=== PATIENT | female | born 1975 | race Caucasian/White ===

== ENCOUNTER → 2016-10-22 | Outpatient (CLI) | payer OTHER ==
[~2016-10-22] MED LIST: AUGMENTIN XR 101 TER PO; BIAXIN500 MG PO; CLARITIN10 MG PO; DIFLUCAN150 MG PO; NKHM; PROTONIX40 MG PO; VICODIN 5/500 505 MG PO; ZITHROMAX Z PA250 MG PO; ZITHROMAX250 MG PO
[2016-10-22 12:06] LABS: ALBUMIN 3.7 gm/dl (3.1-4.5); ALKALINE PHOSPHATASE 67 U/L (45-117); BILIRUBIN, TOTAL 0.4 mg/dl (0.2-1.0); BUN 21 mg/dl (7-24); CARBON DIOXIDE 20 mmol/L (21-32); CHLORIDE 114 mmol/L (98-107); EST GLOM FILT AFRICAN AMERICAN > 60 ml/min; GLUCOSE 98 mg/dL (65-99); POTASSIUM 4.1 mmol/L (3.5-5.1); SGOT/AST 24 IU/L (3-35); SGPT/ALT 41 U/L (12-78); SODIUM 146 mmol/L (136-145); TOTAL PROTEIN 7.4 gm/dL (6.4-8.2)
[2016-10-22 12:10] LABS: FOLIC ACID 11.66 ng/mL (>5.38)
== END | disposition home or self-care (01) ==
LOC: LAB 11:06
PROVIDERS: Internal Medicine
DX: R20.2 Paresthesia of skin (principal)

== ENCOUNTER → 2017-05-11 | Outpatient (CLI) | payer OTHER ==
[2017-05-11 07:58] LABS: BASO # 0.1 10*3/uL (0.0-0.1); BASO % 0.8 % (0.0-1.0); EOS # 0.1 10*3/uL (0.0-0.4); EOS % 0.8 % (1.0-4.0); HEMOGLOBIN 13.8 g/dl (12.0-16.0); IG # 0.1 10*3/uL (0.0-0.1); LYMPH # 3.4 10*3/uL (1.3-4.4); LYMPH % 25.7 % (27.0-41.0); MEAN CELL VOLUME 86.9 fl (81.0-99.0); MEAN CORPUSCULAR HGB 27.9 pg (27.0-31.0); MEAN CORPUSCULAR HGB CONC 32.1 g/dl (33.0-37.0); MEAN PLATELET VOLUME 10.3 fl (9.6-12.3); MONO % 7.3 % (3.0-9.0); NEUT # 8.5 10*3/uL (2.3-7.9); NEUT % 64.7 % (47.0-73.0); PLATELET COUNT AUTOMATED 416 10*3/uL (130-400); RED BLOOD COUNT 4.95 10*6/uL (4.10-5.10); RED CELL DISTRI WIDTH 13.9 % (0-14.5); WHITE BLOOD COUNT 13.1 10*3/uL (4.8-10.8)
[2017-05-11 08:19] LABS: ALBUMIN 3.2 gm/dl (3.1-4.5); ALKALINE PHOSPHATASE 68 U/L (45-117); BILIRUBIN, TOTAL 0.3 mg/dl (0.2-1.0); BUN 17 mg/dl (7-24); CARBON DIOXIDE 26 mmol/L (21-32); CHLORIDE 108 mmol/L (98-107); EST GLOM FILT AFRICAN AMERICAN > 60 ml/min; GLUCOSE 86 mg/dL (65-99); SGOT/AST 15 IU/L (3-35); SGPT/ALT 20 U/L (12-78); SODIUM 140 mmol/L (136-145); TOTAL PROTEIN 7.1 gm/dL (6.4-8.2)
[2017-05-11 08:40] LABS: VITAMIN D, 25-HYDROXY 26.3 ng/mL (30-100)
[2017-05-11 08:41] LABS: FOLIC ACID 10.94 ng/mL (>5.38)
== END | disposition home or self-care (01) ==
LOC: LAB 07:36 → CT 08:00
PROVIDERS: Surgery
DX: H71.92 Unspecified cholesteatoma, left ear (principal); H91.92 Unspecified hearing loss, left ear; K90.89 Other intestinal malabsorption; E55.9 Vitamin D deficiency, unspecified; H65.195 Other acute nonsuppurative otitis media, recurrent, left ear; Z98.84 Bariatric surgery status

== ENCOUNTER 2021-05-17 10:19 | Emergency (ER) | payer OTHER ==
[~2021-05-17 10:19] MED LIST changes: -MONTELUKAST SOD10 MG PO
[2021-05-17 10:34] VITALS: BP 90/44
[2021-05-17 11:01] LABS: BASO % 0.2 % (0.0-1.0); HEMATOCRIT 34.4 % (37.0-47.0); LYMPH # 0.7 10*3/uL (1.3-4.4); LYMPH % 13.5 % (27.0-41.0); MEAN CELL VOLUME 70.3 fl (81.0-99.0); MEAN CORPUSCULAR HGB 19.8 pg (27.0-31.0); MEAN CORPUSCULAR HGB CONC 28.2 g/dl (33.0-37.0); MEAN PLATELET VOLUME 9.7 fl (9.6-12.3); MONO # 0.3 10*3/uL (0.1-1.0); MONO % 4.8 % (3.0-9.0); NEUT # 4.3 10*3/uL (2.3-7.9); NEUT % 81.1 % (47.0-73.0); PLATELET COUNT AUTOMATED 240 10*3/uL (130-400); RED BLOOD COUNT 4.89 10*6/uL (4.10-5.10); RED CELL DISTRI WIDTH 19.9 % (0-14.5); WHITE BLOOD COUNT 5.3 10*3/uL (4.8-10.8)
[2021-05-17 11:18] LABS: ALBUMIN 2.7 gm/dl (3.1-4.5); ALKALINE PHOSPHATASE 53 U/L (45-117); BUN 8 mg/dl (7-24); CHLORIDE 113 mmol/L (98-107); CREATININE 0.71 mg/dL (0.55-1.02); POTASSIUM 3.4 mmol/L (3.5-5.1); SGOT/AST 40 IU/L (3-35); SGPT/ALT 24 U/L (12-78); SODIUM 142 mmol/L (136-145); TOTAL PROTEIN 6.6 gm/dL (6.4-8.2)
[2021-05-17 11:25] LABS: TROPONIN I < 0.015 ng/ml (<0.045)
== END 2021-05-17 10:40 | disposition home or self-care (01) ==
LOC: ED 10:19
PROVIDERS: Student in an Organized Health Care Education/Training Program
DX: R55 Syncope and collapse (principal); Z79.899 Other long term (current) drug therapy

== ENCOUNTER → 2021-05-17 | Outpatient (CLI) | payer OTHER ==
[~2021-05-17] MED LIST changes: +MONTELUKAST SOD10 MG PO
== END | disposition home or self-care (01) ==
LOC: RAD 10:04
PROVIDERS: ATTEND Family Medicine
DX: J98.11 Atelectasis (principal); R91.8 Other nonspecific abnormal finding of lung field

== ENCOUNTER 2021-05-19 13:12 | Inpatient (IN) | payer OTHER ==
[~2021-05-19] VITALS: Ht 165.1 cm; Wt 113.0 kg
[2021-05-19 13:21] VITALS: BP 99/40
[2021-05-19 14:07] LABS: BASO % 0.2 % (0.0-1.0); HEMATOCRIT 34.1 % (37.0-47.0); LYMPH # 0.5 10*3/uL (1.3-4.4); LYMPH % 8.6 % (27.0-41.0); MEAN CELL VOLUME 71.8 fl (81.0-99.0); MEAN CORPUSCULAR HGB 19.8 pg (27.0-31.0); MEAN CORPUSCULAR HGB CONC 27.6 g/dl (33.0-37.0); MEAN PLATELET VOLUME 10.4 fl (9.6-12.3); MONO # 0.3 10*3/uL (0.1-1.0); MONO % 5.7 % (3.0-9.0); NEUT # 4.4 10*3/uL (2.3-7.9); NEUT % 84.7 % (47.0-73.0); PLATELET COUNT AUTOMATED 273 10*3/uL (130-400); RED BLOOD COUNT 4.75 10*6/uL (4.10-5.10); RED CELL DISTRI WIDTH 20.2 % (0-14.5); WHITE BLOOD COUNT 5.2 10*3/uL (4.8-10.8)
[2021-05-19 14:09] LABS: ABG BASE EXCESS -4.4 mmol/L (-2.0-2.0); ARTERIAL BLOOD GAS PH 7.446 (7.35-7.45); ARTERIAL BLOOD GAS PO2 62.2 (80-90)
[2021-05-19 14:21] VITALS: BP 108/67
[2021-05-19 14:30] LABS: ALBUMIN 2.5 gm/dl (3.1-4.5); ALKALINE PHOSPHATASE 52 U/L (45-117); BUN 11 mg/dl (7-24); CHLORIDE 115 mmol/L (98-107); CPK 89 U/L (26-192); LDH 439 U/L (84-246); POTASSIUM 3.2 mmol/L (3.5-5.1); SGOT/AST 55 IU/L (3-35); SGPT/ALT 26 U/L (12-78); SODIUM 143 mmol/L (136-145); TOTAL PROTEIN 6.6 gm/dL (6.4-8.2); TROPONIN I < 0.015 ng/ml (<0.045)
[2021-05-19 16:38] VITALS: BP 131/76
[2021-05-19 18:40] VITALS: BP 112/48
[2021-05-19 19:15] LABS: BILIRUBIN Negative (Negative); BLOOD Negative (Negative); CLARITY Cloudy (Clear); COLOR Dark Yellow (Yellow); GLUCOSE Negative (Negative); KETONE 1+ (Negative); LEUKO ESTERASE Negative (Negative); NITRITE Negative (Negative); SPECIFIC GRAVITY 1.025 (1.001-1.030)
[2021-05-19 19:23] LABS: BACTERIA 2+; EPITHELIAL CELLS TNTC; MUCOUS TRACE; RBC 0-2 rbc/hpf (0-2)
[2021-05-19 19:53] VITALS: BP 104/57
[2021-05-19 23:48] LABS: HEMATOCRIT 33.5 % (37.0-47.0); LYMPH # 0.4 10*3/uL (1.3-4.4); LYMPH % 8.1 % (27.0-41.0); MEAN CELL VOLUME 71.1 fl (81.0-99.0); MEAN CORPUSCULAR HGB 19.7 pg (27.0-31.0); MEAN CORPUSCULAR HGB CONC 27.8 g/dl (33.0-37.0); MEAN PLATELET VOLUME 10.1 fl (9.6-12.3); MONO # 0.2 10*3/uL (0.1-1.0); MONO % 4.6 % (3.0-9.0); NEUT # 3.7 10*3/uL (2.3-7.9); NEUT % 86.6 % (47.0-73.0); PLATELET COUNT AUTOMATED 277 10*3/uL (130-400); RED BLOOD COUNT 4.71 10*6/uL (4.10-5.10); WHITE BLOOD COUNT 4.3 10*3/uL (4.8-10.8)
[2021-05-20] VITALS (13 sets, daily range): BP systolic 80–124; BP diastolic 31–77
[2021-05-20 00:07] LABS: ALBUMIN 2.3 gm/dl (3.1-4.5); ALKALINE PHOSPHATASE 52 U/L (45-117); BUN 13 mg/dl (7-24); CHLORIDE 115 mmol/L (98-107); CREATININE 0.68 mg/dL (0.55-1.02); POTASSIUM 3.6 mmol/L (3.5-5.1); SGOT/AST 57 IU/L (3-35); SGPT/ALT 30 U/L (12-78); SODIUM 143 mmol/L (136-145); TOTAL PROTEIN 6.5 gm/dL (6.4-8.2)
[2021-05-20 09:28] LABS: HEMATOCRIT 34.3 % (37.0-47.0); LYMPH # 0.5 10*3/uL (1.3-4.4); LYMPH % 9.8 % (27.0-41.0); MEAN CELL VOLUME 70.3 fl (81.0-99.0); MEAN CORPUSCULAR HGB 19.7 pg (27.0-31.0); MEAN PLATELET VOLUME 10.2 fl (9.6-12.3); MONO # 0.3 10*3/uL (0.1-1.0); MONO % 6.1 % (3.0-9.0); NEUT % 83.5 % (47.0-73.0); PLATELET COUNT AUTOMATED 331 10*3/uL (130-400); RED BLOOD COUNT 4.88 10*6/uL (4.10-5.10); RED CELL DISTRI WIDTH 20.4 % (0-14.5); WHITE BLOOD COUNT 4.8 10*3/uL (4.8-10.8)
[2021-05-20 09:42] LABS: ALBUMIN 2.3 gm/dl (3.1-4.5); ALKALINE PHOSPHATASE 54 U/L (45-117); BUN 16 mg/dl (7-24); CHLORIDE 115 mmol/L (98-107); CREATININE 0.63 mg/dL (0.55-1.02); LDH 464 U/L (84-246); POTASSIUM 3.6 mmol/L (3.5-5.1); SGOT/AST 57 IU/L (3-35); SGPT/ALT 28 U/L (12-78); SODIUM 144 mmol/L (136-145); TOTAL PROTEIN 6.5 gm/dL (6.4-8.2)
[2021-05-20 09:43] LABS: CPK 60 U/L (26-192)
[2021-05-20 10:13] LABS: ABG BASE EXCESS -4.3 mmol/L (-2.0-2.0); ARTERIAL BLOOD GAS PH 7.421 (7.35-7.45); ARTERIAL BLOOD GAS PO2 62.1 (80-90)
[2021-05-20] MEDS ORDERED: MONTELUKAST SOD10 MG PO (10:30)
[2021-05-20 13:48] LABS: ABG BASE EXCESS -4.9 mmol/L (-2.0-2.0); ARTERIAL BLOOD GAS PH 7.431 (7.35-7.45); ARTERIAL BLOOD GAS PO2 64.2 (80-90)
[2021-05-21] VITALS: BP 105/60
[2021-05-21 04:00] VITALS: BP 114/52
[2021-05-21 05:31] LABS: ALBUMIN 2.3 gm/dl (3.1-4.5); ALKALINE PHOSPHATASE 51 U/L (45-117); BUN 19 mg/dl (7-24); CHLORIDE 118 mmol/L (98-107); CREATININE 0.69 mg/dL (0.55-1.02); LDH 476 U/L (84-246); POTASSIUM 3.7 mmol/L (3.5-5.1); SGOT/AST 52 IU/L (3-35); SGPT/ALT 30 U/L (12-78); SODIUM 145 mmol/L (136-145); TOTAL PROTEIN 6.4 gm/dL (6.4-8.2)
[2021-05-21 07:19] LABS: HEMATOCRIT 32.2 % (37.0-47.0); LYMPH # 0.6 10*3/uL (1.3-4.4); LYMPH % 8.9 % (27.0-41.0); MEAN CELL VOLUME 72.4 fl (81.0-99.0); MEAN CORPUSCULAR HGB CONC 27.6 g/dl (33.0-37.0); MONO # 0.4 10*3/uL (0.1-1.0); MONO % 5.8 % (3.0-9.0); NEUT # 5.4 10*3/uL (2.3-7.9); NEUT % 84.7 % (47.0-73.0); PLATELET COUNT AUTOMATED 360 10*3/uL (130-400); RED BLOOD COUNT 4.45 10*6/uL (4.10-5.10); RED CELL DISTRI WIDTH 20.4 % (0-14.5); WHITE BLOOD COUNT 6.4 10*3/uL (4.8-10.8)
[2021-05-21 08:00] VITALS: BP 107/61; BP 115/56
[2021-05-21 08:16] LABS: ARTERIAL BLOOD GAS PH 7.45 (7.35-7.45); ARTERIAL BLOOD GAS PO2 65.4 (80-90)
[2021-05-21 12:00] VITALS: BP 110/61
[2021-05-21 16:05] VITALS: BP 112/64
[2021-05-21 20:00] VITALS: BP 108/59
[2021-05-22] VITALS: BP 128/68
[2021-05-22 04:00] VITALS: BP 108/55
[2021-05-22 05:55] LABS: ALBUMIN 2.2 gm/dl (3.1-4.5); BUN 22 mg/dl (7-24); CHLORIDE 118 mmol/L (98-107); CREATININE 0.54 mg/dL (0.55-1.02); POTASSIUM 3.8 mmol/L (3.5-5.1); SGOT/AST 51 IU/L (3-35); SGPT/ALT 35 U/L (12-78); SODIUM 147 mmol/L (136-145)
[2021-05-22 05:59] LABS: ALKALINE PHOSPHATASE 48 U/L (45-117); LDH 422 U/L (84-246)
[2021-05-22 06:50] LABS: HEMATOCRIT 31.3 % (37.0-47.0); MEAN CELL VOLUME 72.1 fl (81.0-99.0); MEAN CORPUSCULAR HGB 19.6 pg (27.0-31.0); MEAN CORPUSCULAR HGB CONC 27.2 g/dl (33.0-37.0); MEAN PLATELET VOLUME 10.4 fl (9.6-12.3); PLATELET COUNT AUTOMATED 372 10*3/uL (130-400); RED BLOOD COUNT 4.34 10*6/uL (4.10-5.10); RED CELL DISTRI WIDTH 20.4 % (0-14.5)
[2021-05-22 08:00] VITALS: BP 109/55
[2021-05-22 08:06] LABS: OVALOCYTES MODERATE; PLATELET SUFFICIENCY NORMAL (NORMAL); TOTAL CELLS COUNTED 100 #CELLS
[2021-05-22 10:13] LABS: ABG BASE EXCESS -0.9 mmol/L (-2.0-2.0); ARTERIAL BLOOD GAS PH 7.46 (7.35-7.45); ARTERIAL BLOOD GAS PO2 99.8 (80-90)
[2021-05-22 12:00] VITALS: BP 118/70
[2021-05-22 16:00] VITALS: BP 112/67
[2021-05-22 20:00] VITALS: BP 125/68
[2021-05-23] VITALS: BP 128/65
[2021-05-23 04:00] VITALS: BP 130/68
[2021-05-23 06:18] LABS: ALBUMIN 2.2 gm/dl (3.1-4.5); BUN 24 mg/dl (7-24); CHLORIDE 117 mmol/L (98-107); POTASSIUM 3.9 mmol/L (3.5-5.1); SGOT/AST 59 IU/L (3-35); SGPT/ALT 46 U/L (12-78); SODIUM 146 mmol/L (136-145); TOTAL PROTEIN 5.9 gm/dL (6.4-8.2)
[2021-05-23 06:20] LABS: ALKALINE PHOSPHATASE 53 U/L (45-117); CREATININE 0.56 mg/dL (0.55-1.02); LDH 487 U/L (84-246)
[2021-05-23 06:23] LABS: BASO % 0.2 % (0.0-1.0); HEMATOCRIT 32.5 % (37.0-47.0); LYMPH # 0.8 10*3/uL (1.3-4.4); LYMPH % 12.2 % (27.0-41.0); MEAN CELL VOLUME 71.6 fl (81.0-99.0); MEAN CORPUSCULAR HGB 19.4 pg (27.0-31.0); MEAN CORPUSCULAR HGB CONC 27.1 g/dl (33.0-37.0); MEAN PLATELET VOLUME 10.6 fl (9.6-12.3); MONO # 0.4 10*3/uL (0.1-1.0); MONO % 6.1 % (3.0-9.0); NEUT # 5.1 10*3/uL (2.3-7.9); NEUT % 79.8 % (47.0-73.0); PLATELET COUNT AUTOMATED 430 10*3/uL (130-400); RED BLOOD COUNT 4.54 10*6/uL (4.10-5.10); WHITE BLOOD COUNT 6.4 10*3/uL (4.8-10.8)
[2021-05-23 07:32] LABS: MICROCYTOSIS SLIGHT; OVALOCYTES MODERATE; PLATELET SUFFICIENCY HIGH (NORMAL); TOTAL CELLS COUNTED 100 #CELLS
[2021-05-23 08:00] VITALS: BP 104/53
[2021-05-23 08:10] LABS: ARTERIAL BLOOD GAS PH 7.458 (7.35-7.45); ARTERIAL BLOOD GAS PO2 69.2 (80-90)
[2021-05-23 12:00] VITALS: BP 100/57
[2021-05-23 16:00] VITALS: BP 111/51
[2021-05-23 20:00] VITALS: BP 120/58
[2021-05-24] VITALS: BP 109/54
[2021-05-24 04:00] VITALS: BP 116/65
[2021-05-24 06:06] LABS: ALBUMIN 2.2 gm/dl (3.1-4.5); BUN 20 mg/dl (7-24); CHLORIDE 115 mmol/L (98-107); CREATININE 0.47 mg/dL (0.55-1.02); POTASSIUM 3.9 mmol/L (3.5-5.1); SGOT/AST 39 IU/L (3-35); SGPT/ALT 37 U/L (12-78); SODIUM 144 mmol/L (136-145)
[2021-05-24 06:07] LABS: ALKALINE PHOSPHATASE 55 U/L (45-117)
[2021-05-24 06:20] LABS: HEMATOCRIT 34.7 % (37.0-47.0); MEAN CELL VOLUME 73.2 fl (81.0-99.0); MEAN CORPUSCULAR HGB 19.8 pg (27.0-31.0); MEAN CORPUSCULAR HGB CONC 27.1 g/dl (33.0-37.0); MEAN PLATELET VOLUME 10.7 fl (9.6-12.3); NUCLEATED RED BLOOD CELL 0.1 % (0.0-0.0); PLATELET COUNT AUTOMATED 470 10*3/uL (130-400); RED BLOOD COUNT 4.74 10*6/uL (4.10-5.10); RED CELL DISTRI WIDTH 20.3 % (0-14.5); WHITE BLOOD COUNT 13.4 10*3/uL (4.8-10.8)
[2021-05-24 07:22] LABS: ACANTHOCYTES MODERATE; MICROCYTOSIS SLIGHT; OVALOCYTES MODERATE; PLATELET SUFFICIENCY HIGH (NORMAL); TOTAL CELLS COUNTED 100 #CELLS
[2021-05-24 08:00] VITALS: BP 107/69
[2021-05-24 08:28] LABS: ABG BASE EXCESS 0.5 mmol/L (-2.0-2.0); ARTERIAL BLOOD GAS PH 7.48 (7.35-7.45); ARTERIAL BLOOD GAS PO2 56.9 (80-90)
[2021-05-24 12:00] VITALS: BP 96/41
[2021-05-24 14:32] LABS: ABG BASE EXCESS 0.8 mmol/L (-2.0-2.0); ARTERIAL BLOOD GAS PH 7.501 (7.35-7.45); ARTERIAL BLOOD GAS PO2 52.4 (80-90)
[2021-05-24 16:00] VITALS: BP 96/49
[2021-05-24 20:00] VITALS: BP 105/61
[2021-05-25] VITALS: BP 107/51
[2021-05-25 04:00] VITALS: BP 102/57
[2021-05-25 05:12] LABS: ALBUMIN 2.2 gm/dl (3.1-4.5); ALKALINE PHOSPHATASE 55 U/L (45-117); BUN 22 mg/dl (7-24); CHLORIDE 114 mmol/L (98-107); CREATININE 0.59 mg/dL (0.55-1.02); LDH 439 U/L (84-246); POTASSIUM 3.9 mmol/L (3.5-5.1); SGOT/AST 28 IU/L (3-35); SGPT/ALT 28 U/L (12-78); SODIUM 142 mmol/L (136-145); TOTAL PROTEIN 6.5 gm/dL (6.4-8.2)
[2021-05-25 06:20] LABS: BASO % 0.1 % (0.0-1.0); EOS % 0.1 % (1.0-4.0); HEMATOCRIT 36.3 % (37.0-47.0); LYMPH # 0.7 10*3/uL (1.3-4.4); LYMPH % 4.6 % (27.0-41.0); MEAN CELL VOLUME 72.2 fl (81.0-99.0); MEAN CORPUSCULAR HGB 19.7 pg (27.0-31.0); MEAN CORPUSCULAR HGB CONC 27.3 g/dl (33.0-37.0); MEAN PLATELET VOLUME 11.6 fl (9.6-12.3); MONO # 0.5 10*3/uL (0.1-1.0); MONO % 3.7 % (3.0-9.0); NEUT # 12.8 10*3/uL (2.3-7.9); NEUT % 89.5 % (47.0-73.0); NUCLEATED RED BLOOD CELL 0.1 % (0.0-0.0); PLATELET COUNT AUTOMATED 484 10*3/uL (130-400); RED BLOOD COUNT 5.03 10*6/uL (4.10-5.10); RED CELL DISTRI WIDTH 20.5 % (0-14.5); WHITE BLOOD COUNT 14.3 10*3/uL (4.8-10.8)
[2021-05-25 08:00] VITALS: BP 95/44
[2021-05-25 08:10] LABS: ARTERIAL BLOOD GAS PH 7.46 (7.35-7.45); ARTERIAL BLOOD GAS PO2 69.6 (80-90)
[2021-05-25 12:00] VITALS: BP 112/59
[2021-05-25 16:00] VITALS: BP 92/45
[2021-05-25 18:49] LABS: BILIRUBIN 1+ (Negative); BLOOD Negative (Negative); CLARITY Cloudy (Clear); COLOR Dark Yellow (Yellow); GLUCOSE Negative (Negative); KETONE 1+ (Negative); LEUKO ESTERASE Trace (Negative); NITRITE Negative (Negative); SPECIFIC GRAVITY >= 1.030 (1.001-1.030)
[2021-05-25 18:55] LABS: BACTERIA 2+; EPITHELIAL CELLS 41-50; RBC 0-2 rbc/hpf (0-2)
[2021-05-25 20:00] VITALS: BP 118/56
[2021-05-26] VITALS (34 sets, daily range): BP systolic 74–128; BP diastolic 51–664
[2021-05-26 05:55] LABS: ALBUMIN 1.8 gm/dl (3.1-4.5); ALKALINE PHOSPHATASE 53 U/L (45-117); BUN 17 mg/dl (7-24); CHLORIDE 114 mmol/L (98-107); CREATININE 0.55 mg/dL (0.55-1.02); POTASSIUM 3.6 mmol/L (3.5-5.1); SGOT/AST 22 IU/L (3-35); SGPT/ALT 20 U/L (12-78); SODIUM 144 mmol/L (136-145); TOTAL PROTEIN 5.7 gm/dL (6.4-8.2)
[2021-05-26 06:10] LABS: MEAN CELL VOLUME 72.2 fl (81.0-99.0); MEAN CORPUSCULAR HGB 19.6 pg (27.0-31.0); MEAN CORPUSCULAR HGB CONC 27.2 g/dl (33.0-37.0); MEAN PLATELET VOLUME 10.5 fl (9.6-12.3); PLATELET COUNT AUTOMATED 492 10*3/uL (130-400); RED BLOOD COUNT 4.43 10*6/uL (4.10-5.10); RED CELL DISTRI WIDTH 19.7 % (0-14.5); WHITE BLOOD COUNT 14.2 10*3/uL (4.8-10.8)
[2021-05-26 06:34] LABS: OVALOCYTES FEW; PLATELET SUFFICIENCY HIGH (NORMAL); POLYCHROMASIA SLIGHT; TOTAL CELLS COUNTED 100 #CELLS
[2021-05-26 06:35] LABS: BURR CELLS FEW
[2021-05-26 08:06] LABS: ABG BASE EXCESS 0.6 mmol/L (-2.0-2.0); ARTERIAL BLOOD GAS PH 7.478 (7.35-7.45); ARTERIAL BLOOD GAS PO2 52.1 (80-90)
[2021-05-26 11:49] LABS: ABG BASE EXCESS -4.1 mmol/L (-2.0-2.0); ARTERIAL BLOOD GAS PH 7.221 (7.35-7.45); ARTERIAL BLOOD GAS PO2 75.1 (80-90)
[2021-05-26 13:47] LABS: ABG BASE EXCESS -1.6 mmol/L (-2.0-2.0); ARTERIAL BLOOD GAS PH 7.231 (7.35-7.45); ARTERIAL BLOOD GAS PO2 70.3 (80-90)
[2021-05-26 16:13] LABS: ABG BASE EXCESS -1.3 mmol/L (-2.0-2.0); ARTERIAL BLOOD GAS PH 7.327 (7.35-7.45); ARTERIAL BLOOD GAS PO2 83.7 (80-90)
[2021-05-26 20:28] LABS: ABG BASE EXCESS -0.6 mmol/L (-2.0-2.0); ARTERIAL BLOOD GAS PH 7.386 (7.35-7.45); ARTERIAL BLOOD GAS PO2 101.6 (80-90)
== END 2021-05-26 23:01 | disposition short-term general hospital (02) | DRG 208 ==
LOC: ED 13:12 → EDHOLD 15:09 → ICCU 15:09 → EDHOLD 15:11 → ICCU 19:13 → EDHOLD 19:13 → ICCU 05-20 06:58
PROVIDERS: Emergency Medicine; Internal Medicine Critical Care Medicine; Social Worker Clinical; Student in an Organized Health Care Education/Training Program; ADMIT Internal Medicine; ATTEND Internal Medicine
PROC: 5A0935A Assistance with Respiratory Ventilation, Less than 24 Consecutive Hours, High Flow/Velocity Cannula (ICD-10-PCS; 2021-05-19)
PROC: 5A09557 Assistance with Respiratory Ventilation, Greater than 96 Consecutive Hours, Continuous Positive Airway Pressure (ICD-10-PCS; 2021-05-20)
PROC: XW033E5 Introduction of Remdesivir Anti-infective into Peripheral Vein, Percutaneous Approach, New Technology Group 5 (ICD-10-PCS; 2021-05-20)
PROC: 0BH17EZ Insertion of Endotracheal Airway into Trachea, Via Natural or Artificial Opening (ICD-10-PCS; principal; 2021-05-26)
PROC: 5A1935Z Respiratory Ventilation, Less than 24 Consecutive Hours (ICD-10-PCS; 2021-05-26)
PROC: 02HV33Z Insertion of Infusion Device into Superior Vena Cava, Percutaneous Approach (ICD-10-PCS; 2021-05-26)
PROC: B548ZZA Ultrasonography of Superior Vena Cava, Guidance (ICD-10-PCS; 2021-05-26)
PROC: 03HY32Z Insertion of Monitoring Device into Upper Artery, Percutaneous Approach (ICD-10-PCS; 2021-05-26)
DX: U07.1 COVID-19 (principal); J96.01 Acute respiratory failure with hypoxia; J12.82 Pneumonia due to coronavirus disease 2019; E43 Unspecified severe protein-calorie malnutrition; E87.0 Hyperosmolality and hypernatremia; Z68.41 Body mass index [BMI] 40.0-44.9, adult; R79.82 Elevated C-reactive protein (CRP); R74.8 Abnormal levels of other serum enzymes; E66.01 Morbid (severe) obesity due to excess calories; E87.8 Other disorders of electrolyte and fluid balance, not elsewhere classified; E83.41 Hypermagnesemia; R80.9 Proteinuria, unspecified; D47.3 Essential (hemorrhagic) thrombocythemia; D64.9 Anemia, unspecified; I95.9 Hypotension, unspecified; D72.810 Lymphocytopenia; Z98.891 History of uterine scar from previous surgery; Z90.49 Acquired absence of other specified parts of digestive tract; Z83.3 Family history of diabetes mellitus; Z82.49 Family history of ischemic heart disease and other diseases of the circulatory system; Z79.899 Other long term (current) drug therapy